=== PATIENT | female | born 1950 | race American Indian/Alaskan Native ===

== ENCOUNTER 2016-12-14 18:54 | Emergency (ER) | payer MEDICARE ==
[2016-12-14 23:52] VITALS: BP 175/94
[2016-12-15] MEDS ORDERED: TYLENOL #3 PO ONE (01:11)
--- NOTE | 2016-12-15 01:11 | Emergency Department Report ---
HPI - General Chief Complaint: Back Pain/Injury Time Seen by Provider: 12/15/16 01:10 - HPI HPI: Patient here complaining of right shoulder and lower back pain 4 days. She says she is going to the bathroom a lot but she doesn't have any urinary burning. She says she has chills but no fever. Denies any nausea vomiting. Pain to back is 9 out of 10 and to her shoulder at 4 out of 10. Denies any chest pain or shortness of breath. Denies any trauma to back or shoulder. Patient says she has arthritis and the pain feels like arthritis pain. Denies any abdominal pain. ED Past Medical Hx - Past Medical History Previous Medical History?: Yes Hx Hypertension: Yes Hx Diabetes: Yes - Surgical History Past Surgical History?: Yes Additional Surgical History: L mastectomy - Family History Family history: diabetes, hypertension - Social History Smoking Status: Current Some Day Smoker Substance Use Type: Alcohol - Medications Home Medications: Home Medications Medication Instructions Recorded Confirmed Last Taken Type traMADol [Ultram] 50 mg PO Q6HR PRN #15 tablet 12/15/16 Unknown Rx ED Review of Systems ROS: Stated complaint: LOWER BACK/NECK PAIN Other details as noted in HPI Comment: All other systems reviewed and negative Constitutional: chills. denies: fever Respiratory: no symptoms reported Cardiovascular: denies: chest pain, palpitations, edema, syncope Gastrointestinal: denies: abdominal pain, nausea, vomiting, diarrhea, constipation Genitourinary: denies: urgency, dysuria, frequency, hematuria, discharge Musculoskeletal: back pain, arthralgia. denies: joint swelling, myalgia Skin: denies: rash Neurological: denies: headache, weakness, numbness, paresthesias, confusion, abnormal gait, vertigo Physical Exam - Physical Exam Vital Signs: Vital Signs 12/14/16 12/14/16 20:33 23:51 Temperature 98.5 F 97.9 F Pulse Rate 95 H 89 Respiratory 20 20 Rate Blood Pressure 159/89 Blood Pressure 175/94 [Right] O2 Sat by Pulse 97 96 Oximetry General: This is a 66-year-old female well-nourished well-developed in no acute distress. Physical Exam: Head: Normocephalic atraumatic Mouth: Moist, no pharyngeal exudate or erythema. Uvula is midline and oral airway is patent. No gingival enlargement or dental tenderness. No facial swelling. No peritonsillar abscesses. Neck: Supple, no C-spine tenderness, no tracheal deviation. Nontender to palpate. no adenopathy Eyes: Bilateral pupils equal and reactive to light, bilateral EOM intact. Bilateral sclera and conjunctiva without injection. Normal accommodation Lungs: Clear to auscultate bilaterally no rhonchi wheezes or rales. Normal work of breathing extremity; No CC, trace ankle swelling. . +2 pulses. No neurovascular compromise Cardiovascular: S1-S2, regular rate rhythm. No murmurs. Skin: clean Dry and intact no rash no lesions Psych: Normal mood and behavior Back: Negative SLR bilaterally, no vertebral or paraspinal tenderness. ED Course Vital Signs 12/14/16 12/14/16 20:33 23:51 Temperature 98.5 F 97.9 F Pulse Rate 95 H 89 Respiratory 20 20 Rate Blood Pressure 159/89 Blood Pressure 175/94 [Right] O2 Sat by Pulse 97 96 Oximetry - Reevaluation(s) Reevaluation #1: 12/15/16 02:29 She received Tylenol 3 2 tablets emergency room for complaining of shoulder and back pain. ED Medical Decision Making - Lab Data Lab Results 12/15/16 Range/Units Unknown Urine Color Straw (Yellow) Urine Turbidity Clear (Clear) Urine pH 6.0 (5.0-7.0) Ur Specific [place] 1.014 (1.003-1.030) Urine Protein 30 mg/dl (Negative) mg/dL Urine Glucose (UA) >=500 (Negative) mg/dL Urine Ketones Neg (Negative) mg/dL Urine Blood Sm (Negative) Urine Nitrite Neg (Negative) Urine Bilirubin Neg (Negative) Urine Urobilinogen < 2.0 (<2.0) mg/dL Ur Leukocyte Esterase Neg (Negative) Urine WBC (Auto) 2.0 (0.0-6.0) /HPF Urine RBC (Auto) 3.0 (0.0-6.0) /HPF U Epithel Cells (Auto) 1.0 (0-13.0) /HPF - Medical Decision Making ED course: Patient was just trace ankle swelling which she said is usual and it goes away when she elevated her feet. I discussed the patient that she is having pain from arthritis and she will need to follow-up with her primary care physician. She says she has an appointment with her doctor tomorrow. I also explained to her that her urine showed that she is spilling glucose but she does not have an infection. Patient has diabetes. Patient was given Tylenol No. 3 2 tablets in emergency room for pain. Patient discharged home with discharge instructions and copies of lab results to take to her primary care physician in the morning. Given prescription for Ultram. Critical care attestation.: If time is entered above; I have spent that time in minutes in the direct care of this critically ill patient, excluding procedure time. ED Disposition Clinical Impression: Arthralgia of right shoulder region Back pain Qualifiers: Back pain location: low back pain Chronicity: unspecified Back pain laterality : bilateral Sciatica presence: without sciatica Qualified Code(s): M54.5 - Low back pain Disposition: DISCHARGED TO HOME OR SELFCARE Is pt being admited?: No Does the pt Need Aspirin: No Condition: Stable Instructions: Arthralgia (ED), Back Pain (ED) Additional Instructions: He is keep appointment with this morning Take alll discharge instruction paperwork and lab results with ENT a doctor's appointment Prescriptions: traMADol [Ultram] 50 mg PO Q6HR PRN #15 tablet PRN Reason: Pain Referrals: DR GABRIELA [Other] - 12/15/16 2:33 am Forms: Accompanied Note, Work/School Release Form(ED)
[2016-12-15 01:42] LABS: Bilirubin,Urine NEG (Negative); Blood,Urine SM (Negative); Ketones,Urine NEG (Negative); Leukocyte Esterase,Urine NEG (Negative); Nitrite,Urine NEG (Negative); Urobilinogen,Urine < 2.0 mg/dL (<2.0)
== END 2016-12-15 02:42 | disposition home or self-care (01) ==
LOC: ED 18:54
DX: M54.5 Low back pain (principal); M25.511 Pain in right shoulder; I10 Essential (primary) hypertension; E11.9 Type 2 diabetes mellitus without complications; F17.200 Nicotine dependence, unspecified, uncomplicated
CPT/HCPCS: 81001; 99283

== ENCOUNTER 2021-12-16 17:51 | Observation (INO) | payer MEDICARE ==
--- NOTE | 2021-12-16 18:07 | Emergency Department Report ---
ED General Adult HPI - General Chief complaint: Hyperglycemia Stated complaint: HIGH BLOOD SUGAR PUI?: No Time Seen by Provider: 12/16/21 17:55 Source: patient, EMS Mode of arrival: Stretcher Limitations: No Limitations - History of Present Illness Initial comments: Chief complaint: Elevated blood glucose HPI: This is a 71-year-old female with history of diabetes mellitus, hypertension, dementia who presents with reported elevated blood sugar. Home health nurse noticed that blood glucose reading was elevated on yesterday. Physician encouraged evaluation in the emergency department. Patient denies any symptoms at this time. Report received via EMS. Collateral history obtained by EMS to her son. According to electronic medical record patient was treated for sepsis, DKA hypertensive emergency June 2020. I spoke with son Mr. Cabezas per phone. He has depended on patient to administer her own insulin and medication. She has not taken her own medication in a while. Mr. Cabezas does not have any other concerns. She has not been ill according to his observation. He does not know how to administer insulin. He works 7 PM green coffee blender. Patient is able to function by herself at night. He feels she is safe to be alone at night while she is at work. -: days(s) (2 days of elevated blood sugar readings according to home health nurse) Severity scale (0 -10): 0 Consistency: constant Improves with: none Worsens with: none Associated Symptoms: denies other symptoms Treatments Prior to Arrival: other (EMS transport, PCP recommended evaluation emergency department, home health nurse evaluated patient on yesterday) - Related Data Previous Rx's Medication Instructions Recorded Last Taken Type traMADoL [Ultram 50 MG tab] 50 mg PO Q6HR PRN #15 tablet 12/15/16 Unknown Rx Insulin NPH/Regular [NovoLIN 70/30] 20 unit SUB-Q BIDDIAB #100 units 06/17/20 Unknown Rx metFORMIN [Glucophage] 500 mg PO BID #60 tablet 06/17/20 Unknown Rx Allergies Allergy/AdvReac Type Severity Reaction Status Date / Time No Known Allergies Allergy Unverified 12/16/21 17:56 ED Review of Systems ROS: Stated complaint: HIGH BLOOD SUGAR Other details as noted in HPI Comment: All other systems reviewed and negative (Patient answers all questions seemingly appropriately) Constitutional: denies: chills, fever Respiratory: denies: cough, shortness of breath Cardiovascular: denies: chest pain Gastrointestinal: denies: abdominal pain, nausea, vomiting Neurological: denies: headache ED Past Medical Hx - Past Medical History Previous Medical History?: Yes Hx Hypertension: Yes Hx Diabetes: Yes Additional medical history: DEMENTIA - Surgical History Past Surgical History?: Yes Additional Surgical History: L mastectomy - Social History Smoking Status: Former Smoker Substance Use Type: None - Medications Home Medications: Home Medications Medication Instructions Recorded Confirmed Last Taken Type traMADoL [Ultram 50 MG tab] 50 mg PO Q6HR PRN #15 tablet 12/15/16 Unknown Rx Insulin NPH/Regular [NovoLIN 70/30] 20 unit SUB-Q BIDDIAB #100 units 06/17/20 Unknown Rx metFORMIN [Glucophage] 500 mg PO BID #60 tablet 06/17/20 Unknown Rx ED Physical Exam - General Limitations: No Limitations General appearance: alert, in no apparent distress, other (Cooperative no acute distress well-appearing) - Head Head exam: Present: atraumatic, normocephalic - Eye Eye exam: Present: normal appearance - ENT ENT exam: Present: mucous membranes moist - Neck Neck exam: Present: normal inspection - Respiratory Respiratory exam: Present: normal lung sounds bilaterally. Absent: respiratory distress, wheezes, rales, rhonchi - Cardiovascular Cardiovascular Exam: Present: regular rate, normal rhythm, normal heart sounds. Absent: systolic murmur, diastolic murmur, rubs, gallop - GI/Abdominal GI/Abdominal exam: Present: soft, normal bowel sounds. Absent: distended, tenderness, guarding, rebound - Extremities Exam Extremities exam: Present: normal inspection - Neurological Exam Neurological exam: Present: alert, oriented X3 - Psychiatric Psychiatric exam: Present: normal mood, flat affect - Skin Skin exam: Present: warm, dry, intact, normal color. Absent: rash ED Course Vital Signs 12/16/21 12/16/21 12/16/21 17:54 18:15 18:30 Temperature 98.9 F Pulse Rate 85 79 77 Respiratory 16 8 L 19 Rate Blood Pressure 189/89 187/92 Blood Pressure 180/87 [Left] O2 Sat by Pulse 99 96 97 Oximetry 12/16/21 12/16/21 12/16/21 18:46 19:00 19:16 Temperature Pulse Rate 77 86 120 H Respiratory 10 L 16 18 Rate Blood Pressure 187/92 194/95 194/95 Blood Pressure [Left] O2 Sat by Pulse 99 100 97 Oximetry 12/16/21 12/16/21 12/16/21 19:30 19:46 19:55 Temperature 97.6 F Pulse Rate 79 89 82 Respiratory 10 L 15 14 Rate Blood Pressure 203/105 203/105 Blood Pressure 203/105 [Left] O2 Sat by Pulse 99 99 99 Oximetry 12/16/21 12/16/21 12/16/21 20:00 20:16 20:30 Temperature Pulse Rate Respiratory Rate Blood Pressure 209/99 209/99 195/86 Blood Pressure [Left] O2 Sat by Pulse 96 99 99 Oximetry 12/16/21 12/16/21 12/16/21 20:32 20:46 21:00 Temperature Pulse Rate 79 95 H 71 Respiratory 17 9 L Rate Blood Pressure 195/86 195/86 195/86 Blood Pressure [Left] O2 Sat by Pulse 97 98 Oximetry 12/16/21 12/16/21 12/16/21 21:15 21:31 21:45 Temperature Pulse Rate Respiratory Rate Blood Pressure 195/86 195/86 195/86 Blood Pressure [Left] O2 Sat by Pulse 99 97 99 Oximetry 12/16/21 22:01 Temperature Pulse Rate Respiratory Rate Blood Pressure 195/86 Blood Pressure [Left] O2 Sat by Pulse 97 Oximetry ED Medical Decision Making - Lab Data Result diagrams: 12/16/21 19:27 12/16/21 19:27 - Medical Decision Making 1. Acute hyperglycemia due to medication noncompliance. Son does not quite understand that patient does not have the cognitive ability to manage her medications or medical conditions. Treatment initiated with IV regular insulin bolus and normal saline IVF bolus. She will need continued treatment in order to optimize her volume status and blood glucose. 2. Hypertensive urgency: IV labetalol given to address severely elevated blood pressure, systolic 209 mm Hg shortly after arrival. 3. Social situation: Patient is being cared for by caregiver. She has mobility. However she is not completely independent. Her son works night shif t. Son will need education and further resources regarding medication management. 4. Dementia patient will need further cognitive and memory treatment evaluation. Will benefit from evaluation by primary care physician and neurologist. Critical care attestation.: If time is entered above; I have spent that time in minutes in the direct care of this critically ill patient, excluding procedure time. ED Disposition Clinical Impression: Hyperglycemia due to type 2 diabetes mellitus, Hypertensive urgency, malignant, Dementia Disposition: 09 ADMITTED INPATIENT Is pt being admited?: Yes Does the pt Need Aspirin: No Condition: Stable Instructions: Diabetes Mellitus Type 2 in Adults (ED)
[2021-12-16 19:58] LABS: Hematocrit 35.5 % (30.3-42.9); Hemoglobin 11.6 gm/dl (10.1-14.3); Mean Corpuscular HGB Conc 33 % (30-34); Mean Corpuscular Volume 91 fl (79-97); Red Blood Count 3.91 M/mm3 (3.65-5.03); Red Cell Distribution Width 14.3 % (13.2-15.2)
[2021-12-16 20:01] LABS: Platelet Count 250 K/mm3 (140-440)
[2021-12-16 20:03] LABS: Calcium 8.6 mg/dL (8.4-10.2)
[2021-12-16] MEDS ORDERED: INSULIN REGULAR, HUMAN 100 UNITS/1 ML IV ONE (20:21)
[2021-12-16] MEDS ORDERED: SODIUM CHLORIDE 0.9% 1000 ML 1,000 ML IV ONE (20:22)
[2021-12-16 22:15] LABS: Basophils % (Manual) 0 % (0.0-1.8); Platelet Estimate Consistent w Auto; RBC Morphology Normal; Total Cells Counted 100
[2021-12-16] MEDS ORDERED: MORPHINE 2 MG/1 ML INJ IV PRN (22:52)
[2021-12-16] MEDS ORDERED: DEXTROSE 50% IN WATER (25GM) 50 ML SYRINGE IV PRN (22:52)
[2021-12-16] MEDS ORDERED: ALBUTEROL 2.5 MG/3 ML NEBU IH PRN (22:52)
[2021-12-16] MEDS ORDERED: ACETAMINOPHEN 325 MG TAB PO PRN (22:52)
[2021-12-16] MEDS ORDERED: ONDANSETRON 4 MG/2 ML INJ IV PRN (22:52)
[2021-12-16] MEDS ORDERED: HYDROmorphone 1 MG/1 ML INJ IV PRN (22:52)
--- NOTE | 2021-12-16 23:00 | History and Physical Report ---
History of Present Illness Date of examination: 12/16/21 Date of admission: 12/16/21 Chief complaint: Hyperglycemia History of present illness: 71-year-old female with history of diabetes mellitus, hypertension, dementia was brought to the emergency room because of elevated blood sugar. Home health nurse noticed that blood glucose reading was elevated on yesterday. Patient denies any symptoms at this time. According to electronic medical record patient was treated for sepsis, DKA hypertensive emergency June 2020. In the emergency room patient blood glucose was 537, also patient blood pressure is 189/89. patient to administer her own insulin and medication. Patient is not taking her own medication for a while.'s were going to admit the patient we will put the patient on insulin sliding scale and diabetic education. We will also consult social worker clinical evaluation for safe discharge planning Past History Past Medical History: diabetes, hypertension, other (Dementia) Past Surgical History: Other (Left mastectomy) Social history: other (Formal) Medications and Allergies Allergies Allergy/AdvReac Type Severity Reaction Status Date / Time No Known Allergies Allergy Unverified 12/16/21 17:56 Home Medications Medication Instructions Recorded Confirmed Last Taken Type traMADoL [Ultram 50 MG tab] 50 mg PO Q6HR PRN #15 tablet 12/15/16 Unknown Rx Insulin NPH/Regular [NovoLIN 70/30] 20 unit SUB-Q BIDDIAB #100 units 06/17/20 Unknown Rx metFORMIN [Glucophage] 500 mg PO BID #60 tablet 06/17/20 Unknown Rx Review of Systems All systems: negative Constitutional: other (High blood sugar) Exam - Constitutional Vitals: Temp Pulse Resp BP Pulse Ox 97.6 F 71 9 L 195/86 96 12/16/21 19:55 12/16/21 21:00 12/16/21 21:00 12/16/21 22:31 12/16/21 22:31 General appearance: Present: no acute distress, well-nourished - EENT Eyes: Present: PERRL ENT: hearing intact, clear oral mucosa - Neck Neck: Present: supple, normal ROM - Respiratory Respiratory effort: normal Respiratory: bilateral: diminished - Cardiovascular Heart Sounds: Present: S1 & S2. Absent: rub, click - Extremities Extremities: pulses symmetrical, No edema Peripheral Pulses: within normal limits - Abdominal General gastrointestinal: Present: soft, non-tender, non-distended, normal bowel sounds Female genitourinary: Present: normal - Integumentary Integumentary: Present: clear, warm, dry - Musculoskeletal Musculoskeletal: gait normal, strength equal bilaterally - Psychiatric Psychiatric: appropriate mood/affect, intact judgment & insight - Neurologic Neurologic: CNII-XII intact, moves all extremities Results - Labs CBC & Chem 7: 12/16/21 19:27 12/16/21 19: Labs: Laboratory Last Values WBC 7.2 K/mm3 (4.5-11.0) 12/16/21 19: RBC 3.91 M/mm3 (3.65-5.03) 12/16/21 19: Hgb 11.6 gm/dl (10.1-14.3) 12/16/21 19: Hct 35.5 % (30.3-42.9) 12/16/21 19: MCV 91 fl (79-97) 12/16/21 19: MCH 30 pg (28-32) 12/16/21 19: MCHC 33 % (30-34) 12/16/21 19: RDW 14.3 % (13.2-15.2) 12/16/21 19: Plt Count 250 K/mm3 (140-440) 12/16/21 19: [place] % (Auto) Shoveler 12/16/21 19: Add Manual Diff Complete 12/16/21 19: Total Counted 100 12/16/21 19: Seg Neutrophils % Shoveler 12/16/21 19: Seg Neuts % (Manual) 61.0 % (40.0-70.0) 12/16/21 19: Band Neutrophils % 0 % 12/16/21 19: Lymphocytes % (Manual) 35.0 % (13.4-35.0) 12/16/21 19: Reactive Lymphs % (Man) 0 % 12/16/21 19: Monocytes % (Manual) 1.0 % (0.0-7.3) 12/16/21 19: Eosinophils % (Manual) 3.0 % (0.0-4.3) 12/16/21 19: Basophils % (Manual) 0 % (0.0-1.8) 12/16/21 19: Metamyelocytes % 0 % 12/16/21 19:27 Myelocytes % 0 % 12/16/21 19:27 Promyelocytes % 0 % 12/16/21 19:27 Blast Cells % 0 % 12/16/21 19:27 Nucleated RBC % Not Reportable 12/16/21 19:27 Seg Neutrophils # Man 4.4 K/mm3 (1.8-7.7) 12/16/21 19:27 Band Neutrophils # 0.0 K/mm3 12/16/21 19:27 Lymphocytes # (Manual) 2.5 K/mm3 (1.2-5.4) 12/16/21 19:27 Abs React Lymphs (Man) 0.0 K/mm3 12/16/21 19:27 Monocytes # (Manual) 0.1 K/mm3 (0.0-0.8) 12/16/21 19: Eosinophils # (Manual) 0.2 K/mm3 (0.0-0.4) 12/16/21 19:27 Basophils # (Manual) 0.0 K/mm3 (0.0-0.1) 12/16/21 19:27 Metamyelocytes # 0.0 K/mm3 12/16/21 19:27 Myelocytes # 0.0 K/mm3 12/16/21 19:27 Promyelocytes # 0.0 K/mm3 12/16/21 19:27 Blast Cells # 0.0 K/mm3 12/16/21 19:27 WBC Morphology Not Reportable 12/16/21 19:27 Hypersegmented Neuts Not Reportable 12/16/21 19:27 Hyposegmented Neuts Not Reportable 12/16/21 19:27 Hypogranular Neuts Not Reportable 12/16/21 19:27 Smudge Cells Not Reportable 12/16/21 19:27 Toxic Granulation Not Reportable 12/16/21 19:27 Toxic Vacuolation Not Reportable 12/16/21 19:27 Dohle Bodies Not Reportable 12/16/21 19:27 Pelger-Huet Anomaly Not Reportable 12/16/21 19:27 Blessing Rods Not Reportable 12/16/21 19:27 Platelet Estimate Consistent w auto 12/16/21 19:27 Clumped Platelets Not Reportable 12/16/21 19:27 Plt Clumps, EDTA Not Reportable 12/16/21 19:27 Large Platelets Not Reportable 12/16/21 19:27 Giant Platelets Not Reportable 12/16/21 19:27 Platelet Satelliting Not Reportable 12/16/21 19:27 Plt Morphology Comment Not Reportable 12/16/21 19:27 RBC Morphology Normal 12/16/21 19:27 Dimorphic RBCs Not Reportable 12/16/21 19:27 Polychromasia Not Reportable 12/16/21 19:27 Hypochromasia Not Reportable 12/16/21 19:27 Poikilocytosis Not Reportable 12/16/21 19:27 Anisocytosis Not Reportable 12/16/21 19:27 Microcytosis Not Reportable 12/16/21 19:27 Macrocytosis Not Reportable 12/16/21 19:27 Spherocytes Not Reportable 12/16/21 19:27 Pappenheimer Bodies Not Reportable 12/16/21 19:27 Sickle Cells Not Reportable 12/16/21 19:27 Target Cells Not Reportable 12/16/21 19:27 Tear Drop Cells Not Reportable 12/16/21 19:27 Ovalocytes Not Reportable 12/16/21 19:27 Helmet Cells Not Reportable 12/16/21 19:27 [place] Bodies Not Reportable 12/16/21 19:27 [place] Rings Not Reportable 12/16/21 19:27 Ailyn Cells Not Reportable 12/16/21 19:27 Bite Cells Not Reportable 12/16/21 19:27 Crenated Cell Not Reportable 12/16/21 19:27 Elliptocytes Not Reportable 12/16/21 19:27 Acanthocytes (Spur) Not Reportable 12/16/21 19:27 Rouleaux Not Reportable 12/16/21 19:27 Hemoglobin C Crystals Not Reportable 12/16/21 19:27 Schistocytes Not Reportable 12/16/21 19:27 Malaria parasites Not Reportable 12/16/21 19:27 [place]ino Bodies Not Reportable 12/16/21 19:27 Hem Pathologist Commnt No 12/16/21 19:27 VBG pH 7.386 (7.320-7.420) 12/16/21 19:27 Sodium 134 mmol/L (137-145) L 12/16/21 19:27 Potassium 4.1 mmol/L (3.6-5.0) 12/16/21 19:27 Chloride 100.1 mmol/L (98-107) 12/16/21 19:27 Carbon Dioxide 18 mmol/L (22-30) L 12/16/21 19:27 Anion Gap 20 mmol/L 12/16/21 19:27 BUN 25 mg/dL (7-17) H 12/16/21 19:27 Creatinine 1.2 mg/dL (0.6-1.2) 12/16/21 19:27 Estimated GFR 54 ml/min 12/16/21 19:27 BUN/Creatinine Ratio 21 % 12/16/21 19:27 Glucose 537 mg/dL (65-100) H* 12/16/21 19: POC Glucose 368 mg/dL (70-105) H 12/16/21 22:37 Calcium 8.6 mg/dL (8.4-10.2) 12/16/21 19:27 Assessment and Plan VTE prophylaxis?: Mechanical Plan of care discussed with patient/family: Yes - Patient Problems (1) Hyperglycemia due to type 2 diabetes mellitus Current Visit: Yes Status: Acute Plan to address problem: Admit the patient to the medical telemetry. 1800 kcal ADA diet. Metformin 500 mg p.o. twice daily. Humalog sliding scale moderate dose Accu-Chek before meals and at bedtime. Diabetic education (2) Hypertensive urgency, malignant Current Visit: Yes Status: Acute Plan to address problem: Patient cocktail labetalol 10 mg IV x1 dose. We will put the patient on hydralazine 10 mg IV every 6 hours as needed. Norvasc 5 mg p.o. daily .we will continue the home medication. We will monitor the blood pressure closely (3) Dementia Current Visit: Yes Status: Acute Plan to address problem: Stable. We will continue the home medication (4) DVT prophylaxis Current Visit: Yes Status: Acute Plan to address problem: SCD for DVT prophylaxis. Pepcid 20 mg p.o. twice daily for GI prophylaxis. Patient is a full code
[2021-12-17] MEDS: hydrALAZINE 20 MG/1 ML INJ IV PRN ×2 (00:25→21:27)
[2021-12-17 05:27] LABS: Basophils % (Auto) 0.7 % (0.0-1.8); Eosinophils # (Auto) 0.1 K/mm3 (0.0-0.4); Eosinophils % (Auto) 1.9 % (0.0-4.3); Hematocrit 36.2 % (30.3-42.9); Hemoglobin 11.8 gm/dl (10.1-14.3); Lymphocytes # (Auto) 1.8 K/mm3 (1.2-5.4); Lymphocytes % (Auto) 29.5 % (13.4-35.0); Mean Corpuscular HGB Conc 33 % (30-34); Mean Corpuscular Volume 90 fl (79-97); Monocytes # (Auto) 0.4 K/mm3 (0.0-0.8); Monocytes % (Auto) 6.2 % (0.0-7.3); Platelet Count 231 K/mm3 (140-440); Red Blood Count 4.01 M/mm3 (3.65-5.03); Red Cell Distribution Width 13.9 % (13.2-15.2)
[2021-12-17 05:46] LABS: BUN/Creatinine Ratio 19; Blood Urea Nitrogen 19 mg/dL (7-17); Calcium 8.8 mg/dL (8.4-10.2); Hemolysis Index 17
[2021-12-17] MEDS: metFORMIN 500 MG TAB PO SCH ×2 (07:50→16:56)
[2021-12-17] MEDS: INSULIN LISPRO 100 UNIT/ML SUB-Q SCH ×4 (07:50→21:27)
[2021-12-17] MEDS ORDERED: DEXTROSE 50% IN WATER (25GM) 50 ML SYRINGE IV PRN (08:15)
[2021-12-17] MEDS ORDERED: DEXTROSE 10% *Hypoglycemia IV PRN (09:30)
[2021-12-17] MEDS ORDERED: INSULIN NPH/REGULAR 70/30 INJ SUB-Q SCH ×2 (09:30→18:45)
[2021-12-17] MEDS ORDERED: amLODIPine 5 MG TAB PO SCH (10:00)
[2021-12-17] MEDS: FAMOTIDINE 20 MG TAB PO SCH ×2 (10:14→21:28)
[2021-12-17] MEDS ORDERED: LOSARTAN 50 MG TAB PO SCH ×2 (13:00→18:45)
[2021-12-17] MEDS ORDERED: metFORMIN 500 MG TAB PO SCH (18:45)
--- NOTE | 2021-12-17 18:52 | Progress Note ---
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 - hemoglobin A1c: 15.4 - home regimen: Metformin 500 mg twice daily and NPH 70/30 20 units twice daily - current regimen: NPH 70/30 20 units twice daily, metformin 1000 mg twice daily - blood glucose goal 140-180 while inpatient - continue to monitor #Hypertensionuncontrolled - home medications: None - current medications: Losartan 100 mg daily and nifedipine 30 mg daily - SBP goal <160 and DBP goal <90 while inpatient - continue to monitor #Dementia Currently stable and at baseline #Advanced care planning -Disease education conducted, care plan discussed, diagnoses discussed, prognosis discussed, and patient acknowledges understanding with care plan -Time: +30 min #Discharge planning - Patient is pending correction of hyperglycemia - Case management has been made aware. - Discharge is tentatively 12/18/2021 Disposition Plan: Pending discharge home tomorrow Total Time Spent with Patient (Minutes): 45 minutes History Interval history: No acute events over night. The patient denies fevers, chills, nausea, vomiting, abdominal pain, chest pain/pressure, shortness of breath, urinary symptoms, weakness, or confusion. Hospitalist Physical - Constitutional Vitals: Temp Pulse Resp BP Pulse Ox 96.4 F L 96 H 22 169/85 99 12/17/21 18:00 12/17/21 13:45 12/17/21 13:45 12/17/21 13:45 12/17/21 13:45 General appearance: Present: no acute distress, well-nourished - EENT Eyes: Present: PERRL, EOM intact ENT: hearing intact, clear oral mucosa - Neck Neck: Present: supple, normal ROM - Respiratory Respiratory effort: normal Respiratory: bilateral: CTA - Cardiovascular Rhythm: regular Heart Sounds: Present: S1 & S2 - Extremities Extremities: no ischemia, pulses intact, pulses symmetrical, No edema, normal temperature, normal color, Full ROM Peripheral Pulses: within normal limits - Abdominal General gastrointestinal: soft, non-tender, non-distended, normal bowel sounds - Integumentary Integumentary: Present: clear, warm, dry - Psychiatric Psychiatric: appropriate mood/affect, cooperative - Neurologic Neurologic: CNII-XII intact, moves all extremities - Allied Health Allied health notes reviewed: nursing Results - Labs CBC & Chem 7: 12/17/21 04:53 12/17/21 04:53 Labs: Laboratory Last Values WBC 6.1 K/mm3 (4.5-11.0) 12/17/21 04:53 RBC 4.01 M/mm3 (3.65-5.03) 12/17/21 04:53 Hgb 11.8 gm/dl (10.1-14.3) 12/17/21 04:53 Hct 36.2 % (30.3-42.9) 12/17/21 04:53 MCV 90 fl (79-97) 12/17/21 04:53 MCH 30 pg (28-32) 12/17/21 04:53 MCHC 33 % (30-34) 12/17/21 04:53 RDW 13.9 % (13.2-15.2) 12/17/21 04:53 Plt Count 231 K/mm3 (140-440) 12/17/21 04:53 Lymph % (Auto) 29.5 % (13.4-35.0) 12/17/21 04:53 [place] % (Auto) 6.2 % (0.0-7.3) 12/17/21 04:53 Eos % (Auto) 1.9 % (0.0-4.3) 12/17/21 04:53 Baso % (Auto) 0.7 % (0.0-1.8) 12/17/21 04:53 Lymph # (Auto) 1.8 K/mm3 (1.2-5.4) 12/17/21 04:53 [place] # (Auto) 0.4 K/mm3 (0.0-0.8) 12/17/21 04:53 Eos # (Auto) 0.1 K/mm3 (0.0-0.4) 12/17/21 04:53 Baso # (Auto) 0.0 K/mm3 (0.0-0.1) 12/17/21 04:53 Add Manual Diff Complete 12/16/21 19: Total Counted 100 12/16/21 19:27 Seg Neutrophils % 61.7 % (40.0-70.0) 12/17/21 04:53 Seg Neuts % (Manual) 61.0 % (40.0-70.0) 12/16/21 19: Band Neutrophils % 0 % 12/16/21 19:27 Lymphocytes % (Manual) 35.0 % (13.4-35.0) 12/16/21 19: Reactive Lymphs % (Man) 0 % 12/16/21 19: Monocytes % (Manual) 1.0 % (0.0-7.3) 12/16/21 19: Eosinophils % (Manual) 3.0 % (0.0-4.3) 12/16/21 19: Basophils % (Manual) 0 % (0.0-1.8) 12/16/21 19: Metamyelocytes % 0 % 12/16/21 19: Myelocytes % 0 % 12/16/21 19: Promyelocytes % 0 % 12/16/21: Blast Cells % 0 % 12/16/21: Nucleated RBC % Not Reportable 12/16/21 19: Seg Neutrophils # 3.7 K/mm3 (1.8-7.7) 12/17/21 04:53 Seg Neutrophils # Man 4.4 K/mm3 (1.8-7.7) 12/16/21 19: Band Neutrophils # 0.0 K/mm3 12/16/21 19: Lymphocytes # (Manual) 2.5 K/mm3 (1.2-5.4) 12/16/21 19: Abs React Lymphs (Man) 0.0 K/mm3 12/16/21 19: Monocytes # (Manual) 0.1 K/mm3 (0.0-0.8) 12/16/21 19: Eosinophils # (Manual) 0.2 K/mm3 (0.0-0.4) 12/16/21 19: Basophils # (Manual) 0.0 K/mm3 (0.0-0.1) 12/16/21 19: Metamyelocytes # 0.0 K/mm3 12/16/21: Myelocytes # 0.0 K/mm3 12/16/21: Promyelocytes # 0.0 K/mm3 12/16/21 19: Blast Cells # 0.0 K/mm3 12/16/21 19: WBC Morphology Not Reportable 12/16/21 19: Hypersegmented Neuts Not Reportable 12/16/21: Hyposegmented Neuts Not Reportable 01/26/22 19:27 Hypogranular Neuts Not Reportable 12/16/21 19:27 Smudge Cells Not Reportable 12/16/21 19:27 Toxic Granulation Not Reportable 12/16/21 19:27 Toxic Vacuolation Not Reportable 12/16/21 19:27 Dohle Bodies Not Reportable 12/16/21 19:27 Pelger-Huet Anomaly Not Reportable 12/16/21 19:27 Blessing Rods Not Reportable 12/16/21 19:27 Platelet Estimate Consistent w auto 12/16/21 19:27 Clumped Platelets Not Reportable 12/16/21 19:27 Plt Clumps, EDTA Not Reportable 12/16/21 19:27 Large Platelets Not Reportable 12/16/21 19:27 Giant Platelets Not Reportable 12/16/21 19:27 Platelet Satelliting Not Reportable 12/16/21 19:27 Plt Morphology Comment Not Reportable 12/16/21 19:27 RBC Morphology Normal 12/16/21 19:27 Dimorphic RBCs Not Reportable 12/16/21 19:27 Polychromasia Not Reportable 12/16/21 19:27 Hypochromasia Not Reportable 12/16/21 19:27 Poikilocytosis Not Reportable 12/16/21 19:27 Anisocytosis Not Reportable 12/16/21 19:27 Microcytosis Not Reportable 12/16/21 19:27 Macrocytosis Not Reportable 12/16/21 19:27 Spherocytes Not Reportable 12/16/21 19:27 Pappenheimer Bodies Not Reportable 12/16/21 19:27 Sickle Cells Not Reportable 12/16/21 19:27 Target Cells Not Reportable 12/16/21 19:27 Tear Drop Cells Not Reportable 12/16/21 19:27 Ovalocytes Not Reportable 12/16/21 19:27 Helmet Cells Not Reportable 12/16/21 19:27 [place] Bodies Not Reportable 12/16/21 19:27 [place] Rings Not Reportable 12/16/21 19:27 [place] Cells Not Reportable 12/16/21 19:27 Bite Cells Not Reportable 12/16/21 19:27 Crenated Cell Not Reportable 12/16/21 19:27 Elliptocytes Not Reportable 12/16/21 19:27 Acanthocytes (Spur) Not Reportable 12/16/21 19:27 Rouleaux Not Reportable 12/16/21 19:27 Hemoglobin C Crystals Not Reportable 12/16/21 19:27 Schistocytes Not Reportable 12/16/21 19:27 Malaria parasites Not Reportable 12/16/21 19:27 [place] Bodies Not Reportable 12/16/21 19:27 Hem Pathologist Commnt No 12/16/21 19:27 VBG pH 7.386 (7.320-7.420) 12/16/21 19:27 Sodium 138 mmol/L (137-145) 12/17/21 04:53 Potassium 3.7 mmol/L (3.6-5.0) 12/17/21 04:53 Chloride 102.4 mmol/L (98-107) 12/17/21 04:53 Carbon Dioxide 18 mmol/L (22-30) L 12/17/21 04:53 Anion Gap 21 mmol/L 12/17/21 04:53 BUN 19 mg/dL (7-17) H 12/17/21 04:53 Creatinine 1.0 mg/dL (0.6-1.2) 12/17/21 04:53 Estimated GFR > 60 ml/min 12/17/21 04:53 BUN/Creatinine Ratio 19 % 12/17/21 04:53 Glucose 401 mg/dL (65-100) H 12/17/21 04:53 POC Glucose 345 mg/dL (70-105) H 12/17/21 16:37 Hemoglobin A1c 15.4 % (4-6) H 12/17/21 13:33 Calcium 8.8 mg/dL (8.4-10.2) 12/17/21 04:53 Active Medications - Current Medications Current Medications: Generic Name Dose Route Start Last Admin Trade Name Freq PRN Reason Stop Dose Admin Acetaminophen 650 mg 12/16/21 22:52 Acetaminophen 325 Mg Tab PO Q4H PRN Pain MILD(1-3)/Fever >100.5/LARA Albuterol 2.5 mg 12/16/21 22:52 Albuterol 2.5 Mg/3 Ml Nebu IH Q3HRT PRN Shortness Of Breath Albuterol/Ipratropium 1 ampul 12/17/21 02:00 Ipratropium/Albuterol Sulfate 3 Ml Ampul.Neb IH Q6HRT [facility] Dextrose 0 ml 12/16/21 22:52 Dextrose 50% In Water (25gm) 50 Ml Syringe IV Q30MIN PRN Hypoglycemia Protocol Dextrose 0 ml 12/17/21 09:30 Dextrose 10% *Hypoglycemia IV PRN PRN Hypoglycemia Famotidine 20 mg 12/17/21 10:00 12/17/21 10:14 Famotidine 20 Mg Tab PO 20 mg BID TORIN Administration Hydralazine HCl 10 mg 12/16/21 23:03 12/17/21 00:25 Hydralazine 20 Mg/1 Ml Inj IV 10 mg Q6H PRN Administration Blood Pressure Hydromorphone HCl 0.5 mg 12/16/21 22:52 Hydromorphone 1 Mg/1 Ml Inj IV Q3H PRN Pain , Severe (7-10) Insulin Human Isoph/Insulin Regular 20 unit 12/17/21 18:48 Insulin Nph/Regular 70/30 Inj SUB-Q BIDDIAB [facility] Insulin Human Lispro 0 unit 12/17/21 07:30 12/17/21 16:53 Insulin Lispro 100 Unit/Ml SUB-Q 6 unit ACHS [facility] Administration Protocol Losartan Potassium 100 mg 12/17/21 18:45 Losartan 50 Mg Tab PO QDAY [facility] Metformin HCl 1,000 mg 12/17/21 18:45 Metformin 500 Mg Tab PO BIDDIAB [facility] Morphine Sulfate 2 mg 12/16/21 22:52 Morphine 2 Mg/1 Ml Inj IV Q4H PRN Pain, Moderate (4-6) Nifedipine 30 mg 12/17/21 19:00 Nifedipine Xl 30 Mg Tab PO QDAY [facility] Ondansetron HCl 4 mg 12/16/21 22:52 Ondansetron 4 Mg/2 Ml Inj IV Q8H PRN Nausea And Vomiting Sodium Chloride 10 ml 12/17/21 10:00 12/17/21 10:15 Sodium Chloride 0.9% 10 Ml Flush Syringe IV 10 ml BID TORIN Administration Sodium Chloride 10 ml 12/16/21 22:52 Sodium Chloride 0.9% 10 Ml Flush Syringe IV PRN PRN LINE FLUSH Nutrition/Malnutrition Assess - Dietary Evaluation Nutrition/Malnutrition Findings: Nutrition Notes Start: 12/17/21 11:29 Freq: Status: Active Protocol: Document 12/17/21 11:29 HERMAN (Rec: 12/17/21 11:34 HERMAN [id number]) Nutrition Notes Need for Assessment generated from: MD Order,Education Initial or Follow up Brief Note Current Diagnosis Diabetes,Hypertension Other Pertinent Diagnosis Hyperglycemia, Hypertensive urgency, Dementia. Current Diet Cardiac/Consistent Carbohydrates Diet (since B ). Height 5 ft 4 in Weight 58.967 kg [place] Body Weight (kg) 54.54 BMI 22.3 Weight change and time frame None reported at admission. Weight Status Appropriate Subjective/Other Information RD consult for Nutrition Education. No reports available on Pt's PO intake at the time. Pt still on ED, not a candidate for Nutrition Education at the time, will assess feasibility on F/U. Percent of energy/protein needs met: Prescribed Cardiac/Consistent Carbohydrates Diet provides for energy/protein needs (1, 977 Kcal/86 g) during LOS. Nutrition Intervention Follow-Up By: 12/24/21 Additional Comments Nutrition education will be provided on F/U if feasible. Continue monitoring food tolerance, %PO intake of meals , and BM.
[2021-12-17] MEDS: INSULIN NPH/REGULAR 70/30 INJ SUB-Q SCH (19:30)
[2021-12-17] MEDS: IPRATROPIUM/ALBUTEROL SULFATE 3 ML AMPUL.NEB IH SCH ×3 (20:01→21:45)
[2021-12-17] MEDS: NIFEdipine XL 30 MG TAB PO SCH (20:04)
[2021-12-18 04:47] VITALS: BP 140/73
[2021-12-18 06:29] LABS: Calcium 9.2 mg/dL (8.4-10.2)
[2021-12-18] MEDS: IPRATROPIUM/ALBUTEROL SULFATE 3 ML AMPUL.NEB IH SCH ×2 (07:50→13:19)
[2021-12-18] MEDS ORDERED: FAMOTIDINE 10 MG TAB PO SCH (10:00)
[2021-12-18] MEDS: NIFEdipine XL 30 MG TAB PO SCH (11:11)
--- NOTE | 2021-12-18 11:53 | Discharge Summary ---
Providers - Providers Date of Admission: 12/16/21 22:52 Date of discharge: 12/18/21 Attending physician: CONCHITA GARRISON MD 12/16/21 20:26 Consult to Case Management [CONS] Stat Services Needed at Discharge: Perforator Loader Notified:: n Additional Physician Instructions: Son needs assistance with medication ministration. 12/16/21 22:53 Consult to Dietitian/Nutrition [CONS] Routine Physician Instructions: Reason For Exam: Reason for Consult: Diet education 12/17/21 15:29 Physical Therapy Evaluation and Treat [CONS] Routine Comment: Reason For Exam: Patient reports frequent falls Mode of Transport?: Cane Weight bearing status?: Full wt bearing Assistive devices?: Yes If so list: Walker Cane Primary care physician: BRIDGE DESIGN ENGINEER Hospitalization Reason for admission: Insulin-dependent type 2 diabetes mellitus with hyperglycemia Condition: Stable Pertinent studies: Reviewed. Procedures: None. Hospital course: The patient is a 71-year-old female with past medical history of insulin- dependent type 2 diabetes mellitus, hypertension, and dementia who presented for home after having an elevated blood glucose reading. In the emergency room the patient's blood glucose was found to be 537 with an elevated blood pressure of 189/89. The patient admits to not being compliant with her medications. The patient's hemoglobin A1c was found to be 15.4. The patient was restarted on a regimen of NPH 70/30 20 units twice daily and Metformin 1000 mg twice daily. Due to elevated blood pressures in the setting of diabetes mellitus, the patient was initiated on losartan 100 mg daily and nifedipine 30 mg daily. The patient was counseled at length about the importance of medication compliance and dietary changes. The patient expresses understanding. Patient is medically clear for discharge. Disposition: HOME / SELF CARE / HOMELESS Final Discharge Diagnosis (Prints w/discharge instructions): Insulin-dependent type 2 diabetes mellitus with hyperglycemia, hypertension, dementia, medication noncompliance Time spent for discharge: 45 min Core Measure Documentation - Palliative Care Palliative Care/ Comfort Measures: Not Applicable - Core Measures Any of the following diagnoses?: none Exam - Constitutional Vitals: Temp Pulse Resp BP Pulse Ox 98.3 F 90 18 140/73 98 12/18/21 04:11 12/18/21 07:50 12/18/21 07:50 12/18/21 04:11 12/18/21 07:50 General appearance: Present: no acute distress, well-nourished - EENT Eyes: Present: PERRL, EOM intact ENT: hearing intact, clear oral mucosa, edentulous - Neck Neck: Present: supple, normal ROM - Respiratory Respiratory effort: normal Respiratory: bilateral: CTA - Cardiovascular Rhythm: regular Heart Sounds: Present: S1 & S2 - Extremities Extremities: no ischemia, pulses intact, pulses symmetrical, No edema, normal temperature, normal color, Full ROM Peripheral Pulses: within normal limits - Abdominal General gastrointestinal: Present: soft, non-tender, non-distended, normal bowel sounds Female genitourinary: Present: deferred - Rectal Rectal Exam: deferred - Integumentary Integumentary: Present: clear, warm, dry - Musculoskeletal Musculoskeletal: strength equal bilaterally - Psychiatric Psychiatric: appropriate mood/affect, cooperative - Neurologic Neurologic: CNII-XII intact, moves all extremities - Allied Health Allied health notes reviewed: nursing Plan Activity: no restrictions Diet: low salt, diabetic Additional Instructions: The patient is a 71-year-old female with past medical history of insulin-dependent type 2 diabetes mellitus, hypertension, and dementia who presented for home after having an elevated blood glucose reading. In the emergency room the patient's blood glucose was found to be 537 with an elevated blood pressure of 189/89. The patient admits to not being compliant with her medications. The patient's hemoglobin A1c was found to be 15.4. The patient was restarted on a regimen of NPH 70/30 20 units twice daily and Metformin 1000 mg twice daily. Due to elevated blood pressures in the setting of diabetes mellitus, the patient was initiated on losartan 100 mg daily and nifedipine 30 mg daily. The patient was counseled at length about the importance of medication compliance and dietary changes. The patient expresses understanding. Patient is medically clear for discharge. Care Plan Goals: Patient is medically cleared for discharge. Assessment: The patient is a 71-year-old female with past medical history of insulin- dependent type 2 diabetes mellitus, hypertension, and dementia who presented for home after having an elevated blood glucose reading. In the emergency room the patient's blood glucose was found to be 537 with an elevated blood pressure of 189/89. The patient admits to not being compliant with her medications. The patient's hemoglobin A1c was found to be 15.4. The patient was restarted on a regimen of NPH 70/30 20 units twice daily and Metformin 1000 mg twice daily. Due to elevated blood pressures in the setting of diabetes mellitus, the patient was initiated on losartan 100 mg daily and nifedipine 30 mg daily. The patient was counseled at length about the importance of medication compliance and dietary changes. The patient expresses understanding. Patient is medically clear for discharge. Prescriptions: Losartan [Cozaar] 100 mg PO QDAY #30 tablet metFORMIN [Glucophage] 1,000 mg PO BIDDIAB #60 tablet Insulin NPH/Regular [NovoLIN 70/30] 20 unit SUB-Q BIDDIAB #2 vial NIFEdipine XL [Procardia Xl] 30 mg PO QDAY #30 tablet
[2021-12-18] MEDS: INSULIN NPH/REGULAR 70/30 INJ SUB-Q SCH (12:08)
[2021-12-18] MEDS: INSULIN LISPRO 100 UNIT/ML SUB-Q SCH (12:09)
== END 2021-12-18 13:15 | disposition home or self-care (01) ==
LOC: ED 17:51 → INTOOBSV 22:52 → 4A 22:52
PROVIDERS: ADMIT Hospitalist; ATTEND Student in an Organized Health Care Education/Training Program
DX: E11.65 Type 2 diabetes mellitus with hyperglycemia (principal); I16.0 Hypertensive urgency; F03.90 Unspecified dementia, unspecified severity, without behavioral disturbance, psychotic disturbance, mood disturbance, and anxiety; R29.6 Repeated falls; Z79.899 Other long term (current) drug therapy; Z98.890 Other specified postprocedural states; Z79.4 Long term (current) use of insulin; Z87.891 Personal history of nicotine dependence
CPT/HCPCS: 36415; 80048; 82805; 82962; 83036; 85025; 94640; 96361; 96374; 96375; 96376; 97162; 99284; G0378; J0360; J3490; J7030; 85007; Q0162; Q0177; Q9967; J1815